=== PATIENT | female | born 1945 | race Caucasian/White ===

== ENCOUNTER 2022-07-15 18:00 | Inpatient (IN) | payer MEDICARE, SELFPAY ==
--- NOTE | ~2022-07-15 | CT_ITS ---
EXAMINATION: CT HEAD WITHOUT CONTRAST (STROKE PROTOCOL) CLINICAL INFORMATION: Stroke protocol. Left-sided weakness COMPARISON: None available. TECHNIQUE: Contiguous axial imaging was performed from the skull base to vertex without intravenous administration of contrast. This CT examination was performed using dose optimization techniques as appropriate, variously including the following: *Automated exposure control *Adjustment of mA and/or kV according to patient size (this includes techniques or standardized protocols for targeted exams where dose is matched to indication/reason for exam; i.e. extremities or head) *Use of iterative reconstruction technique DLP: 601 mGy-cm FINDINGS: There is no evidence of acute intracranial hemorrhage or territorial infarction. No abnormal mass-effect or midline shift is seen. Jesus to white matter differentiation is well preserved. No extra-axial fluid collections are identified. The ventricles are normal in size. There is no abnormal attenuation within the brain parenchyma. There is no osseous abnormality. The mastoid air cells and visualized portions of the paranasal sinuses are well-aerated. CT/CT head for stroke IMPRESSION: No acute intracranial pathology. This critical result was discussed with Dr. Ocampo. Recommend dose length. at 1820 hours on 07/15/2022. It was ascertained that the content and urgency of the report was understood at the time of direct communication.
--- NOTE | ~2022-07-15 | CT_ITS ---
EXAMINATION: CT ANGIOGRAM HEAD CT ANGIOGRAM NECK CLINICAL INFORMATION: Reason for Exam stroke COMPARISON: Same day CT head without contrast TECHNIQUE: Test bolus sequences followed by intravenous administration 70 mL of Omnipaque 350. Helical imaging was performed in the axial plane from the aortic arch to the skull vertex. Delayed postcontrast imaging of the head was also performed. The data was processed at the cardiac cath technologist's workstation for generation of MIP sequences. Angled MIPs and volume rendered reformatted images were also generated at an offline 3D workstation. Stenoses are assessed in accordance with NASCET criteria unless otherwise indicated. DLP: 1429 mGy-cm This CT examination was performed using dose optimization techniques as appropriate, variously including the following: *Automated exposure control. *Adjustment of mA and/or kV according to patient size (this includes techniques or standardized protocols for targeted exams where dose is matched to indication/reason for exam; i.e. extremities or head). *Use of iterative reconstruction technique. FINDINGS: CT Head: There is no evidence of acute intracranial hemorrhage or edematous territorial infarction. A few foci of hypoattenuation in the periventricular and deep white matter are consistent with mild microangiopathy. Jesus-white matter differentiation is preserved. Proportional prominence of the ventricles and sulcal spaces. No evidence for obstructive hydrocephalus. No abnormal mass effect or midline shift. No extra-axial fluid collections. No pathologic intra-axial enhancement or regional oligemia. No acute soft tissue or osseous abnormalities. The mastoid air cells and paranasal sinuses are clear. CT Neck: The thyroid gland and remaining cervical soft tissues are within normal limits. Moderate to advanced multilevel cervical spondylosis. Degenerative disc disease is worst at C5-C6. CT Upper Chest: Biapical pulmonary scarring. The visualized upper mediastinum is within normal limits. There is a subacute appearing fracture of the right anterolateral first rib Neck CTA: Aortic Arch: Normal contour and caliber. Classic 3 vessel branching pattern of the aortic arch. Great Vessel Origins: No significant stenosis of the branch origins. Evaluation of the proximal great great vessels at the thoracic inlet is somewhat limited due to motion. Right Common Carotid Artery: No focal stenosis or occlusion. Medialized proximal course along the tracheoesophageal groove. Cervical Right Internal Carotid Artery: Normal opacification without focal stenosis or occlusion. Proximal retropharyngeal course. Left Common Carotid Artery: No focal stenosis or occlusion. Medialized distal retropharyngeal course. Cervical Left Internal Carotid Artery: Normal opacification without focal stenosis or occlusion. Cervical Right Vertebral Artery: No focal stenosis or occlusion. Cervical Left Vertebral Artery: Dominant. No focal stenosis or occlusion. Brain CTA: Intracranial Internal Carotid Arteries: Calcific atherosclerotic disease of the intracranial internal carotid arteries without occlusion or flow-limiting stenosis. 3 mm inferiorly projecting aneurysm of the supraclinoid left internal carotid artery (series 6 image 272). Right Anterior Cerebral Artery: Normal A1 segment. Normal opacification of the distal KATARZYNA segments. Left Anterior Cerebral Artery: Normal A1 segment. Normal opacification of the distal KATARZYNA segments. Anterior Communicating Artery: Normal. Right Middle Cerebral Artery: Normal M1 segment of the MCA without focal stenosis or occlusion. Normal arborization of the distal segments. Left Middle Cerebral Artery: Normal M1 segment of the MCA without focal stenosis or occlusion. Normal arborization of the distal segments. Right Vertebral Artery: The proximal intradural vertebral artery is patent with patent origin of the right PICA and occlusion of the distal intradural right vertebral artery. Left Vertebral Artery: Normal V4 segment. Basilar Artery: Normal without focal stenosis or occlusion. Normal appearance of the proximal superior cerebellar arteries. Right Posterior Cerebral Artery: configuration. There is a high-grade stenosis of the distal P2 segment with grossly preserved contrast filling of the distal right CORPORATE TREASURY ANALYST complex Left Posterior Cerebral Artery: Normal P1 segment. Normal opacification of the distal CORPORATE TREASURY ANALYST segments. Normal opacification of the superior sagittal, straight, transverse, and sigmoid sinuses. CT/CT angio head neck stroke IMPRESSION: 1. 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 There is preserved contrast filling of the basilar artery and posterior circulation from the dominant left vertebral artery. 2. High-grade stenosis of the distal P2 segment of the right posterior cerebral artery with grossly preserved distal right CORPORATE TREASURY ANALYST complex opacification. 3. 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
[2022-07-15 18:09] LABS: Glucose, Whole Blood 135 mg/dL (60-115); Prothrombin Time Whole Bld POC 11.2 sec (11.1-13.5); ~PT, ~INR - Anti Coag Clinic 0.9 (0.9-1.1)
--- NOTE | 2022-07-15 18:09 | ECG_ITS ---
Test Reason : STROKE? Blood Pressure : / mmHG Vent. Rate : 095 BPM Atrial Rate : 095 BPM P-R Int : 162 ms QRS Dur : 076 ms QT Int : 342 ms P-R-T Axes : 066 054 053 degrees QTc Int : 429 ms Normal sinus rhythm Normal ECG No previous ECGs available Referred By: Emilia Ocampo Electronically Signed By:FRANKLIN SANTOS
--- NOTE | 2022-07-15 18:19 | ED.NEUROSD ---
HPI - Neuro Symptoms/Deficit General Chief Complaint: Stroke Stated Complaint: Stroke Time Seen by Provider: 07/15/22 18:09 History of Present Illness HPI Narrative: Patient is a 77-year-old female with a history of hypertension, high cholesterol. Patient baseline has a history of migraine and some visual loss is out of the left eye. Presented today with having sudden onset of difficulty finding the correct word. Difficulty with using left upper extremity. Patient came into the emergency department for further evaluation. Related Data Allergies Allergy/AdvReac Type Severity Reaction Status Date / Time No Known Allergies Allergy Verified 07/15/22 18:09 Review of Systems Review of Systems: Positive subjective weakness in the left upper extremity positive subjective difficulty finding words Yes all other systems are reviewed and are negative [facility] Past Medical History Attestation statement: The following information was validated with the patient. Physical Exam Vital Signs: Vital Signs: Last Vital Signs Temp 97.9 F 07/15/22 18:58 Pulse 97 07/15/22 18:58 Resp 12 07/15/22 18:58 BP 153/67 H 07/15/22 18:58 Pulse Ox 95 07/15/22 18:58 O2 Del Method Room Air 07/15/22 18:58 BMI result Body Mass Index 23.4 Appearance: Alert. Oriented X3. No acute distress. Eyes: Pupils equal, round and reactive to light. ENT: Pharynx normal. Neck: Normal inspection. Neck supple. No lymph nodes noted. No crepitus CVS: Normal heart rate and rhythm. Pulses normal. Normal S1 and S2 Respiratory: No respiratory distress. Breath sounds normal. No Wheezing. No rales Abdomen: Soft and nontender. No rigidity. No distention. good BS x4 Skin: Skin warm and dry. Normal skin color. Normal skin turgor. Extremities: No lower extremity edema. Neurovascular intact to all extremities. No Lacerations. No Rash. Grossly strength in the upper lower extremity intact. Moving all extremities well. There is no finger-nose deficit noted. Rapid alternating movement intact. Patient's speech was clear. Smile was symmetrical. Able to lift up bilateral lower extremity against gravity for at least 5 seconds. Neuro: Oriented X 3. No motor deficit. No sensory deficit. Moving all extermities. No slurred speech Medications Administered Discontinued Medications Generic Name Dose Route Start Last Admin Trade Name Freq PRN Reason Stop Dose Admin Diphenhydramine HCl 25 mg 07/15/22 18:49 07/15/22 19:08 Diphenhydramine Hcl 50 Mg/Ml Vial IVPUSH 07/15/22 18:50 25 mg ONCE ONE Administration Iohexol 100 ml 07/15/22 18:23 07/15/22 18:24 Iohexol 350 Mg/Ml 100 Ml Infus..Btl IV 07/15/22 18:24 70 ml ONCE ONE Administration Metoclopramide HCl 10 mg 07/15/22 18:49 07/15/22 19:07 Metoclopramide Hcl 10 Mg/2 Ml Vial IVPUSH 07/15/22 18:50 10 mg ONCE ONE Administration Medical Decision Making Medical Decision Making [facility] Narrative: Patient's sugar was over 100 there is no evidence for hypoglycemia. Patient presented with sudden onset of weakness. It seems to have resolved on arrival in emergency department. Patient has no peripheral visual field defect on exam. Has good equal strength in the upper extremity. Has good equal strength in the bilateral lower extremity. She thinks that she is having difficulty finding words but has improved. Patient's CT scan of the head was grossly negative. Her NIH stroke scale was 0. Do not feel patient's deficit warrants tPA at this time. Will monitor closely. CTA of the head and neck being done to rule out a larger occlusion in the proximal vessel. Patient is in stable condition will most likely require admission for TIA. Patient's CT head was grossly negative for any acute evidence of bleeding. CTA head and neck showed a posterior circulation issue. The finding was discussed with Neurology. At this time felt patient should be admitted without tPA given symptoms mostly resolved. NIH stroke scale was low. Symptoms may be consistent with migraine. Case will be discussed with the hospitalist team. Will admit for further evaluation. Differential Diagnosis Hypoglycemia, TIA, CVA, mass Admission/Observation Consideration of admission/observation: Escalation of care including admission/observation considered Consult Healthcare Provider Management of the patient was discussed with: Hospitalist Lab Data [facility] Lab Attestation statement: I reviewed the patient's lab results. 07/15/22 18:50 07/15/22 18:50 Labs: Lab Results 07/15/22 07/15/22 07/15/22 Range/Units 18:05 18:05 18:50 WBC 7.0 (4.8-10.8) X10*3/uL RBC 5.11 (4.20-5.50) X10*6/uL Hgb 15.6 (12.0-16.0) g/dl Hct 45.4 (37.0-47.0) % MCV 88.8 (80.0-98.0) fL MCH 30.5 (27.0-33.0) pg MCHC 34.4 (31.0-35.0) g/dl RDW 13.5 (11.0-16.0) % Plt Count 250 (160-400) X10*3/uL MPV 9.1 L (9.4-12.3) fL Immature Gran % (Auto) 0.3 (0.0-0.4) % Neut % (Auto) 77.6 H (45-73) % Lymph % (Auto) 14.9 L (20-40) % [place] % (Auto) 6.4 (2-11) % Eos % (Auto) 0.4 (0-4) % Baso % (Auto) 0.4 (0-2) % Lymph # (Auto) 1.0 L (1.2-4.9) X10*3/uL [place] # (Auto) 0.5 (0.1-1.2) X10*3/uL Eos # (Auto) 0.0 (0.0-0.4) X10*3/uL Baso # (Auto) 0.0 (0.0-0.2) X10*3/uL Abs Immat Gran (auto) 0.02 (0.00-0.03) X10*3/uL Absolute Neuts (auto) 5.4 (2.0-8.3) x10*3/uL Absolute Nucleated RBC 0.000 (0.0-0.012) X10*3/uL Nucleated RBC % (auto) 0.0 (0.0-0.2) /100WBC PT (10.0-13.1) SEC Whole Blood PT 11.2 (11.1-13.5) sec INR (0.9-1.1) Whole Blood INR 0.9 (0.9-1.1) POC Glucose 135 H (60-115) mg/dL 07/15/22 Range/Units 18:50 WBC (4.8-10.8) X10*3/uL RBC (4.20-5.50) X10*6/uL Hgb (12.0-16.0) g/dl Hct (37.0-47.0) % MCV (80.0-98.0) fL MCH (27.0-33.0) pg MCHC (31.0-35.0) g/dl RDW (11.0-16.0) % Plt Count (160-400) X10*3/uL MPV (9.4-12.3) fL Immature Gran % (Auto) (0.0-0.4) % Neut % (Auto) (45-73) % Lymph % (Auto) (20-40) % [place] % (Auto) (2-11) % Eos % (Auto) (0-4) % Baso % (Auto) (0-2) % Lymph # (Auto) (1.2-4.9) X10*3/uL [place] # (Auto) (0.1-1.2) X10*3/uL Eos # (Auto) (0.0-0.4) X10*3/uL Baso # (Auto) (0.0-0.2) X10*3/uL Abs Immat Gran (auto) (0.00-0.03) X10*3/uL Absolute Neuts (auto) (2.0-8.3) x10*3/uL Absolute Nucleated RBC (0.0-0.012) X10*3/uL Nucleated RBC % (auto) (0.0-0.2) /100WBC PT 10.0 (10.0-13.1) SEC Whole Blood PT (11.1-13.5) sec INR 0.9 (0.9-1.1) Whole Blood INR (0.9-1.1) POC Glucose (60-115) mg/dL Independent Interpretation I performed an independent interpretation of an: EKG and CT Scan Interpretation: CT head negative for any acute evidence of bleeding. My interpretation patient's CT showed a sinus pattern heart rate was 100 [place] QRS QTC within normal limits is no acute ST segment. Radiology Impression Discussion of test interpretation with radiology: I have reviewed the radiologist's reading. Radiologist Impression: CTA showed decreased blood flow in the posterior circulation NIH Stroke Scale Internal: Initial- Upon Arrival Time: 18:20 Level of Consciousness: Alert Level of Consciousness Questions: Answers both questions correctly Level of Consciousness Commands: Performs both tasks correctly Best Gaze: Normal Visual: No visual loss Facial Palsy: Normal Motor Arm (Right): No drift Motor Arm (Left): No drift Motor Leg (Right): No drift Motor Leg (Left): No drift Limb Ataxia: Absent Sensory: Normal Best Language: No aphasia Dysarthia: Normal Extinction and Inattention: No abnormality Score: 0 Critical Care Time Critical Care Time Critical Care Time: Yes Total Critical Care Time: 40 Attestation: I have personally provided 40 minutes of critical care time exclusive of time spent on separately billable procedures. Time includes review of lab data, radiology results, discussion with consultants, and monitoring for potential decompensation. Interventions were performed as documented above Discharge Plan Discharge Clinical Impression: Cerebrovascular accident, Transient cerebral ischemia Patient Disposition: Admitted As Inpatient
[2022-07-15] MEDS: iohexoL 350 MG/ML 100 ML INFUS..BTL IV (18:24)
[2022-07-15 18:35] VITALS: BP 153/67; BP 178/54; PULSE 107; PULSE 99; RESP 20; O2SAT 95; O2SAT 99; BMI 23.4
[2022-07-15 18:58] VITALS: BP 153/67; PULSE 97; RESP 12; TEMP 36.6; O2SAT 95
[2022-07-15 19:06] LABS: MANUAL DIFF FLAG NO
[2022-07-15] MEDS: Metoclopramide HCl 10 MG/2 ML VIAL IVPUSH (19:07)
[2022-07-15 19:08] LABS: Basophils Percent Auto 0.4 % (0-2); Eosinophils Percent Auto 0.4 % (0-4); Hematocrit 45.4 % (37.0-47.0); Hemoglobin 15.6 g/dl (12.0-16.0); Imm Gran Abs Auto 0.02 X10*3/uL (0.00-0.03); Imm Gran Pct Auto 0.3 % (0.0-0.4); Lymphocytes Percent Auto 14.9 % (20-40); Mean Corpuscular HGB Conc 34.4 g/dl (31.0-35.0); Mean Corpuscular Hemoglobin 30.5 pg (27.0-33.0); Mean Corpuscular Volume 88.8 fL (80.0-98.0); Mean Platelet Volume 9.1 fL (9.4-12.3); Monocytes Absolute Auto 0.5 X10*3/uL (0.1-1.2); Monocytes Percent Auto 6.4 % (2-11); Neutrophils Absolute Auto 5.4 x10*3/uL (2.0-8.3); Neutrophils Percent Auto 77.6 % (45-73); Platelet Count 250 X10*3/uL (160-400); Red Blood Count 5.11 X10*6/uL (4.20-5.50); Red Cell Distribution Width 13.5 % (11.0-16.0)
[2022-07-15] MEDS: diphenhydrAMINE HCL 50 MG/ML VIAL 25 MG IVPUSH (19:08)
[2022-07-15 19:14] LABS: INTERNATIONAL NORM RATIO 0.9 (0.9-1.1)
[2022-07-15 19:21] LABS: Stroke Lab Use COMPLETE
[2022-07-15 19:21] LABS: COVID-19 Test Negative (Negative); IDNOW Serial# BCCEAD1C
--- NOTE | 2022-07-15 19:23 | PM.IMHP ---
History of Present Illness Date of Service: 07/15/22 Chief Complaint: Left arm weakness This is a 77-year-old female with pertinent history of essential hypertension, generalized anxiety disorder, gastroesophageal reflux disease, migraine who presents to the emergency department for evaluation of left upper extremity and left lower extremity weakness. Patient states that around 17:00 she had sudden onset of left upper extremity tingling and weakness. Patient also had left lower extremity weakness and some difficulty ambulating. No history of stroke in the past. Does have a history of migraine with baseline visual loss out of left eye. States she may have had difficulty with word-finding too. Patient denies fever, chills, chest discomfort, palpitations, shortness of breath, abdominal pain, changes in urinary or bowel habits. No loss of consciousness, jerking movement of extremities, facial droop In the emergency department, neurology was consulted who requested admission. Review of Systems Constitutional: Constitutional: Reports no additional constitutional complaints and Reports weakness Cardiovascular: Cardiovascular: Reports no additional cardiovascular complaints Respiratory: Respiratory: Reports no additional respiratory complaints Gastrointestinal: Gastrointestinal: Reports no additional gastrointestinal complaints Genitourinary: Genitourinary: Reports no additional female genitourinary complaints Musculoskeletal: Musculoskeletal: Reports numbness Neurologic: Reports Abnormal speech present, Reports focal weakness, Reports numbness and Reports weakness Psychiatric: Psychiatric: Reports no additional psychiatric complaints [facility] Medical History Anxiety GERD (gastroesophageal reflux disease) Hypertension Migraine Pertinent family history: No family h/o of CAD Surgical History H/O shoulder replacement Social History Advance Directives: No Advance Directives Information Provided: No Meds Allergies Allergy/AdvReac Type Severity Reaction Status Date / Time No Known Allergies Allergy Verified 07/15/22 18:09 Active Medications: Current Medications Pharmacy Consult (Consult Rx Perform Med Rec) 1 each MISCELLANE ONCE PRN PRN Reason: Consult order Physical Exam Vital Signs and Narrative: Vital Signs: Last Vital Signs Temp 97.9 F 07/15/22 18:58 Pulse 97 07/15/22 18:58 Resp 12 07/15/22 18:58 BP 153/67 H 07/15/22 18:58 Pulse Ox 95 07/15/22 18:58 O2 Del Method Room Air 07/15/22 18:58 BMI result Body Mass Index 23.4 Middle-aged female lying in bed in no distress Neck supple, no JVD Regular rate and rhythm, S1-S2 heard Regular breath sounds bilaterally, no wheezing or crackles appreciated Abdomen soft nontender, no guarding, no rigidity Patient is awake, alert and oriented to self, place, time and person ; strength 4/5 in bilateral lower extremities, 5/5 in bilateral upper extremities, no facial droop, no nystagmus, tongue and uvula midline, Psych: Normal mood No pedal edema Neuro: Speech: Abnormal speech present Results Labs 07/15/22 18:50 07/15/22 18:50 Labs: Laboratory Results - last 24 hr 07/15/22 07/15/22 07/15/22 18:05 18:05 18:50 MCV 88.8 MCH 30.5 MCHC 34.4 RDW 13.5 Plt Count 250 MPV 9.1 L Immature Gran % (Auto) 0.3 Neut % (Auto) 77.6 H Lymph % (Auto) 14.9 L [place] % (Auto) 6.4 Eos % (Auto) 0.4 Baso % (Auto) 0.4 Lymph # (Auto) 1.0 L [place] # (Auto) 0.5 Eos # (Auto) 0.0 Baso # (Auto) 0.0 Abs Immat Gran (auto) 0.02 Absolute Neuts (auto) 5.4 Absolute Nucleated RBC 0.000 Nucleated RBC % (auto) 0.0 PT Whole Blood PT 11.2 INR Whole Blood INR 0.9 POC Glucose 135 H COVID-19 ([facility]ONNE) COVID-19 Clin Com 07/15/22 07/15/22 18:50 18:57 MCV MCH MCHC RDW Plt Count MPV Immature Gran % (Auto) Neut % (Auto) Lymph % (Auto) [place] % (Auto) Eos % (Auto) Baso % (Auto) Lymph # (Auto) [place] # (Auto) Eos # (Auto) Baso # (Auto) Abs Immat Gran (auto) Absolute Neuts (auto) Absolute Nucleated RBC Nucleated RBC % (auto) PT 10.0 Whole Blood PT INR 0.9 Whole Blood INR POC Glucose COVID-19 (YVONNE) Negative COVID-19 Clin Com See Note Imaging Radiologist's Impressions: Impressions Head CT 07/15/22 18:15 IMPRESSION: No acute intracranial pathology. This critical result was discussed with Dr. Ocampo. Recommend dose length. at 1820 hours on 07/15/2022. It was ascertained that the content and urgency of the report was understood at the time of direct communication. Head/Neck CTA 07/15/22 18:24 IMPRESSION: 1. 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 There is preserved contrast filling of the basilar artery and posterior circulation from the dominant left vertebral artery. 2. 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 3. 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 #. Transient left-sided weakness: Concerning for TIA. Will admit patient with cardiac exercise physiologist. Patient states she is unable to undergo MRI as she has metal in her right shoulder. Obtaining echo, A1c and lipid panel to complete workup. Consulting Neurology in a.m., appreciate assistance. Received aspirin in the ER #. Essential hypertension: Continue home p.o. antihypertensives #. Generalized anxiety disorder: On lorazepam at night #. Gastroesophageal reflux disease: On Protonix Med rec pending DVT prophylaxis: Lovenox 40 mg daily Full code Cardiac diet Admit as inpatient possible TIA and stroke workup. Neurology consult pending Time Spent With Patient Time: Total time managing care of this patient today ____ minutes. Quality Stroke Does the patient have a stroke diagnosis?: No VTE Prior VTE?: No VTE Risk Level:: Medical - moderate - high VTE Device Contraindication: Treatment Not Indicated VTE Drug Contraindication: N/A - Med Ordered
[2022-07-15 19:29] LABS: Anion Gap 17 (12-20); Blood Urea Nitrogen 17 mg/dL (9-16); Calcium 9.8 mg/dL (8.4-10.2); Carbon Dioxide 21 mmol/L (22-29); Chloride 100 mmol/L (96-108); Creatinine Clr Calc Pharmacy 43.9; Estimated Glomerular Filt Rate > 60; Glucose Random 106 mg/dL (60-115); Magnesium 1.9 mg/dL (1.6-2.6); Phosphorus 3.5 mg/dL (2.7-4.5); Potassium 4.5 mmol/L (3.3-5.1); Sodium 133 mmol/L (135-145)
[2022-07-15 19:36] LABS: Troponin-I High Sensitivity 7.4 ng/L (<3.5-17.0)
--- NOTE | 2022-07-15 19:55 | PHA.MEDREC ---
Pharmacy Consult ? Medication Reconciliation Pharmacy has completed the medication reconciliation. Patient knew all medications
[2022-07-15 20:12] VITALS: BP 129/66; PULSE 87; RESP 18; TEMP 36.8; O2SAT 95
[2022-07-15] MEDS: Aspirin 81 MG TAB.CHEW PO (20:15)
[2022-07-15] MEDS: LORazepam 1 MG TABLET PO (20:15)
[2022-07-15] MEDS: Enoxaparin Sodium 40 MG/0.4 ML SYRINGE SUBCUT (20:16)
[2022-07-15 20:22] LABS: Appearance Urine Clear; Color Urine Yellow; Glucose Urine UA Negative (Negative); Leukocyte Esterase Urine Trace (Negative); Nitrite Urine Negative (Negative); UMIC TRIGGER UACC YES; Urine Blood Negative (Negative); Urine Ketones Negative (Negative); Urine Protein Negative (Neg-Trace)
[2022-07-15 20:25] LABS: Bacteria Urine None Seen (None Seen); Hyaline Casts Urine 0-2 /LPF (0-2); RBC Urine 0-2 /HPF (0-2); Squamous Epithelial Cell Urine 0-2 /HPF (0-2); WBC Urine 0-5 /HPF (0-5)
[2022-07-15 20:26] LABS: Cholesterol 252 mg/dL; HDL Cholesterol 97 mg/dL; LDL Cholesterol Calculated 140 mg/dl; Triglycerides 75 mg/dL
--- NOTE | 2022-07-15 21:45 | PC.NURSE ---
Pt A&Ox4, denies any pain, denies any blurry vision. Symmetric smile, equal bilateral hand route inspector, no hand drift noted, equal pedal extension. Ambulated to BR with stand by assist, steady gait. Passed nursing bedside swallow eval. States feeling a lot better . Pt declined toradol r/t leg swelling in the past. RN to RN report given. Pt will be transported to bed 482. Pt aware of plan.
[2022-07-15 23:32] VITALS: BP 141/66; PULSE 80; RESP 15; TEMP 36.9; O2SAT 97
[2022-07-16 03:18] LABS: Estimated Average Glucose 100 mg/dL; Hemoglobin A1c % 5.1 %
[2022-07-16 06:54] LABS: MANUAL DIFF FLAG NO
[2022-07-16 07:00] LABS: Basophils Percent Auto 0.6 % (0-2); Eosinophils Absolute Auto 0.1 X10*3/uL (0.0-0.4); Eosinophils Percent Auto 1.1 % (0-4); Hematocrit 41.4 % (37.0-47.0); Hemoglobin 14.1 g/dl (12.0-16.0); Imm Gran Abs Auto 0.01 X10*3/uL (0.00-0.03); Imm Gran Pct Auto 0.2 % (0.0-0.4); Lymphocytes Absolute Auto 1.6 X10*3/uL (1.2-4.9); Lymphocytes Percent Auto 29.6 % (20-40); Mean Corpuscular HGB Conc 34.1 g/dl (31.0-35.0); Mean Corpuscular Hemoglobin 30.5 pg (27.0-33.0); Mean Corpuscular Volume 89.4 fL (80.0-98.0); Mean Platelet Volume 9.4 fL (9.4-12.3); Monocytes Absolute Auto 0.6 X10*3/uL (0.1-1.2); Monocytes Percent Auto 11.1 % (2-11); Neutrophils Percent Auto 57.4 % (45-73); Platelet Count 223 X10*3/uL (160-400); Red Blood Count 4.63 X10*6/uL (4.20-5.50); Red Cell Distribution Width 13.5 % (11.0-16.0); White Blood Count 5.3 X10*3/uL (4.8-10.8)
--- NOTE | 2022-07-16 07:00 | CA_ITS ---
Transthoracic Echocardiogram Patient (Last, First, Middle): Becky Bonner, Gender: Female Date of : 1945 Age: 77 Procedure Date: 07/16/2022 Procedure Type: [place]ansthoracic [place] [facility] [place]: 152.4 cm Weight: 54.43 kg BSA: 1.50 m2 Heart Rate: bpm BP: 141 / 66 mmHg Reporter: YE Referring MD: Brodie Fitzgerald MD Symptoms: CVA Study Quality: Adequate ECG Rhythm: Sinus Conclusions: - The left ventricular systolic function is hyperdynamic. The visually estimated ejection fraction is >70%. - There is mild calcification of the aortic valve. - No obvious valvular pathology seen on this study. Findings Left Ventricle Normal left ventricular cavity size. There is normal left ventricular wall thickness. The left ventricular systolic function is hyperdynamic. The visually estimated ejection fraction is >70%. There is no evidence of regional wall motion abnormalities. Diastolic function is normal for age. Right Ventricle Normal right ventricular cavity size and systolic function. Atria Both atria are normal in size. Aortic Valve There is a normal trileaflet aortic valve. There is mild calcification of the aortic valve. There is no aortic valve stenosis. There is no aortic valve regurgitation. Mitral Valve The mitral valve appears normal. There is trace mitral valve regurgitation. There is no mitral valve stenosis. Pulmonic Valve The pulmonic valve is likely normal. Tricuspid Valve There is trace tricuspid valve regurgitation. There is no evidence of pulmonary hypertension. Great Vessels The asc aorta is normal in size. Venous The inferior vena cava is normal in size and collapses greater than 50% with inspiration. Pericardium/Pleural There is no evidence of pericardial effusion. Prior Study Comparison No prior study available for comparison. Recommendations, Care & Conclusions No obvious valvular pathology seen on this study. Measurements 2D Linear Measurements IVSd: 0.95 0.6-0.9/0.6-1.0 cm LVIDd: 3.75 3.9-5.3/4.2-5.9 cm LVIDd Index: 2.50 2.4-3.2/2.2-3.1 cm/m2 LVIDs: 2.19 2.0-3.6 cm LVPWd: 0.72 0.7-1.1 cm LA Diam: 2.30 2.7-3.8/3.0-4.0 cm LAIDs Index: 1.53 1.5-2.3 cm/m2 LV Mass: 110.84 67-162/88-224 g LV Mass Index: 73.89 43-95/49-115 g/m2 LVOT Diam: 1.80 3.0+(-)1.3 cm 2D Systolic Function EF 4C: 74.10 >55% EF 2C: 74.80 >55% EF BiP: 74.40 >55% Mitral Valve MV Pk E: 0.80 MV PK A: 0.98 MV Decel Time: 311.00 E/A: 0.80 E'Lateral: 9.14 E'Medial: 5.44 E/E' Med: 14.70 E/E' Lat: 8.70 PHT: 91.00 MVA PHT: 2.42 Decel Braxton: 2.57 Aortic Valve AoV Pk Christopher: 1.42 AoV Mn Christopher: 1.09 AoV VTI: 0.26 AoV Pk Grad: 8.00 Aov Mn Grad: 5.00 JAI Cont.VTI: 2.29 LVOT LVOT Pk Christopher: 1.20 LVOT Mn Christopher: 0.85 LVOT VTI: 0.24 LVOT Pk Grad: 6.00 LVOT Mn Grad: 3.00 LVOT Diam: 1.80 LVOT Area: 2.54 Diastolic Function MV Pk E: 0.80 MV Pk A: 0.98 E/A: 0.80 E'Medial: 5.44 E/E' Med: 14.70 E' Laterial: 9.14 E/E' Lat: 8.70 Right Ventricle TAPSE (mm): 23.60 TVS' Christopher: 17.10 Tricuspid Valve TR Pk Christopher: 1.86 TR Pk Grad: 14.00 RA Press: 3.00 RVSP: 17.00 Great Vessels Aorta Sinus of Valsalva: 2.80 2.0-3.5 cm Ao Asc: 2.70 2.1-3.4 cm Pulmonary Valve PV Pk Christopher: 1.24 Peak PV Grad: 6.00 Updated in Other Vendor System with Status of Final Mervin Celis MD electronically signed on 07/16/2022 4:15:55 PM with status of Final
[2022-07-16 07:22] LABS: Anion Gap 14 (12-20); Blood Urea Nitrogen 13 mg/dL (9-16); Calcium 9.2 mg/dL (8.4-10.2); Carbon Dioxide 24 mmol/L (22-29); Chloride 104 mmol/L (96-108); Creatinine Clr Calc Pharmacy 50.5; Estimated Glomerular Filt Rate > 60; Glucose Random 82 mg/dL (60-115); Potassium 4.2 mmol/L (3.3-5.1); Sodium 138 mmol/L (135-145)
[2022-07-16 07:43] VITALS: BP 132/70; PULSE 75; RESP 20; TEMP 37.2; O2SAT 96
[2022-07-16] MEDS: 0.9 % Sodium Chloride Flush 3 ML SYRINGE IVFLUSH (07:57)
[2022-07-16 11:02] VITALS: BP 148/74; PULSE 78; RESP 20; TEMP 36.7; O2SAT 96
--- NOTE | 2022-07-16 11:16 | MHC.SL.SWA ---
Speech Pathologist Impression: WFL Risk of Aspiration Due to: TIA v CVA Dysphasia Diet Status: Liquid Consistency and Strategies for Safe Swallow: Liquid Intake Recommendation: Thin Liquid Intake Strategies: Unrestricted Solid Food Consistency: Dietary Recommendations: Regular Oral Medication Intake: Please contact the pharmacy regarding appropriate crushable or liquid drug formulations that are available whenever modified delivery is recommended. Supervision While Eating and Drinking for Safe Swallow: None Needed Swallowing Recommended Treatments: Recommendation for Speech: NA:Typical Evaluation Comment: No ACCOUNT DEVELOPMENT REPRESENTATIVE services indicated at this time. Frequency/Duration: Date Range for Service Req: Timeline to reassess: Bowling Pin Setters Installer Clinican/Clinical Fellow: No Supervisory Statement: I have reviewed and agree with the student/clinical fellow's documentation: N/A Speech Language Pathologist: Stu Vazquez M.A., CCC-ACCOUNT DEVELOPMENT REPRESENTATIVE
--- NOTE | 2022-07-16 12:04 | MHC.CM.PN ---
Addendum entered by Sandrita Oropeza 07/16/22 15:47: DP: PT HAS BEEN MEDICALLY CLEARED FOR DC HOME, NO SERVICES. DAUGHTER WILL TRANSPORT. Original Note: [facility] DELIVERED PT IS HERE VISITING DAUGHTER FROM [place]. PLAN TO RETURN TO [facility] 07/20 IF MEDICALLY CLEARED VIA PLANE. WILL STAY WITH DAUGHTER UNTIL THEN. INDEPENDENT AT BASELINE, WALKS A MILE DAILY. +HCP (COPY AT HOME, DECLINES TO FILL A NEW ONE OUT) + COVID VAX X5 PCP IN [place]. DP: TO RETURN HOME ON 07/[address], WILL STAY WITH DAUGHTER UNTIL THEN. CM WILL CONTINUE TO FOLLOW.
--- NOTE | 2022-07-16 12:57 | PM.CNGS ---
History of Present Illness Consult details Consult date: 07/16/22 Narrative: Very pleasant 77-year-old female presents for evaluation regarding TIA. She has been admitted to the hospital and being worked up by the medical service. Of note she has undergone CT angiogram of head neck. There is concern of a vertebral artery occlusion. Appears to be doing relatively well otherwise. She reports D incident where she had lost left arm and leg weakness. There was a speech disturbance. In addition to blurry with vision. It was a 1 time episode and no further events had occurred. She now presents to us for vascular evaluation. Review of Systems Review of Systems: Yes all other systems are reviewed and are negative Constitutional: Constitutional: Reports no additional constitutional complaints ENT: Reports Normal hearing present Cardiovascular: Cardiovascular: Denies chest pain, Denies chest pain at rest, Denies chest pain with activity and Denies pedal edema Respiratory: Respiratory: Denies cough Gastrointestinal: Gastrointestinal: Denies abdominal pain Musculoskeletal: Musculoskeletal: Denies abnormal gait, Denies muscle cramps and Denies radiating pain into limb Integumentary/Breasts: Skin/Breast: Denies skin ulcer and Denies wounds Neurologic: Reports Normal hearing present and Denies abnormal gait Psychiatric: Psychiatric: Reports no additional psychiatric complaints PMFSH Past Medical History Medical History Anxiety GERD (gastroesophageal reflux disease) Hypertension Migraine Surgical History Surgical History H/O shoulder replacement Social History Social History Household Members: None Housing: Apartment Do you presently have visiting nurse or other home services: No (pt lives in [place]) Alcohol intake: current Alcohol intake frequency: 0-2 drinks per day Alcohol type: wine Patient Tobacco Use Status: Never used Tobacco service: No Current occupational status: retired Meds Allergies Allergy/AdvReac Type Severity Reaction Status Date / Time No Known Allergies Allergy Verified 07/15/22 18:09 Active Medications: Current Medications Acetaminophen (Acetaminophen 325 Mg Tablet) 650 mg PO Q6H PRN PRN Reason: Pain, Mild (Pain Scale 1-3) Enoxaparin Sodium (Enoxaparin Sodium 40 Mg/0.4 Ml Syringe) 40 mg SUBCUT Q24H [facility] Last Admin: 07/15/22 20:16 Dose: 40 mg Melatonin (Melatonin 3 Mg Tablet) 6 mg PO BEDTIME PRN PRN Reason: Insomnia Omeprazole (Omeprazole 40 Mg Capsule.Dr) 40 mg PO DAILY@0630 [facility] Ondansetron HCl (Ondansetron Hcl 4 Mg/2 Ml Vial) 4 mg IVPUSH Q8H PRN PRN Reason: Nausea and Vomiting Pharmacy Consult (Consult Rx Perform Med Rec) 1 each MISCELLANE ONCE PRN PRN Reason: Consult order Sodium Chloride (0.9 % Sodium Chloride Flush 3 Ml Syringe) 3 ml IVFLUSH QSHIFT [facility] Last Admin: 07/16/22 07:57 Dose: 3 ml Home Medications Medication Instructions Recorded Confirmed Last Taken Type amlodipine 10 mg tablet 10 mg PO DAILY 07/15/22 07/15/22 Unknown History gabapentin 100 mg capsule 100 mg PO BID PRN Pain 07/15/22 07/15/22 Unknown History lisinopril 20 mg tablet 40 mg PO DAILY 07/15/22 07/15/22 Unknown History lorazepam 1 mg tablet 1 mg PO BEDTIME PRN Insomnia 07/15/22 07/15/22 Unknown History pantoprazole 40 mg tablet,delayed 40 mg PO DAILY 07/15/22 07/15/22 Unknown History release Physical Exam Vital Signs: Vital Signs: Last Vital Signs Temp 98.0 F 07/16/22 11:02 Pulse 78 07/16/22 11:02 Resp 20 07/16/22 11:02 BP 148/74 H 07/16/22 11:02 Pulse Ox 96 07/16/22 11:02 O2 Del Method Room Air 07/16/22 11:02 BMI result Body Mass Index 23.4 Const: General: cooperative, healthy appearing and comfortable Orientation/consciousness: oriented to person, oriented to place and oriented to time HEENT: Head: Yes normal to inspection Neck: Neck: Yes normal visual inspection Carotids: no bruits Chest: Chest palpation & inspection: normal inspection of the chest Resp: Effort & Inspection: normal respiratory effort and able to speak in complete sentences Auscultation: clear to auscultation bilaterally, no crackles, no rales, no rhonchi and no wheezes Cardio: Rate: regular rate Rhythm: regular rhythm Heart sounds: S1 normal heart sound present and S2 normal heart sound present Bruits: no carotid bruits Peripheral pulses: Peripheral pulses 2+ throughout GI: Inspection: Yes normal to inspection Skin: Wounds: no wounds Hair: normal Neuro: General: oriented to person, oriented to place and oriented to time Cranial nerves: Yes CN's II-XII intact bilaterally and Yes Normal hearing present Cognition (Neuro): normal cognition Motor exam (neuro): 5/5 motor strength present throughout Extrem: Other: venous exam: No significant superficial varicosities or spider telangiectasias, minimal edema General: No clubbing, No cyanosis and No edema Psych: Appearance: grossly normal Mental Status: mental status grossly normal Speech and movement: Normal speech and movement present Results Labs 07/16/22 06:18 07/16/22 06:18 Labs: Abnormal lab results 07/15/22 07/15/22 07/15/22 Range/Units 18:05 18:50 18:50 MPV 9.1 L (9.4-12.3) fL Neut % (Auto) 77.6 H (45-73) % Lymph % (Auto) 14.9 L (20-40) % [place] % (Auto) (2-11) % Lymph # (Auto) 1.0 L (1.2-4.9) X10*3/uL Sodium 133 L (135-145) mmol/L Carbon Dioxide 21 L (22-29) mmol/L BUN 17 H (9-16) mg/dL POC Glucose 135 H (60-115) mg/dL Ur Leukocyte Esterase (Negative) 07/15/22 07/16/22 Range/Units 20:13 06:18 MPV (9.4-12.3) fL Neut % (Auto) (45-73) % Lymph % (Auto) (20-40) % [place] % (Auto) 11.1 H (2-11) % Lymph # (Auto) (1.2-4.9) X10*3/uL Sodium (135-145) mmol/L Carbon Dioxide (22-29) mmol/L BUN (9-16) mg/dL POC Glucose (60-115) mg/dL Ur Leukocyte Esterase Trace H (Negative) Short CBC 07/15/22 07/16/22 Range/Units 18:50 06:18 WBC 7.0 5.3 (4.8-10.8) X10*3/uL Hgb 15.6 14.1 (12.0-16.0) g/dl Hct 45.4 41.4 (37.0-47.0) % Plt Count 250 223 (160-400) X10*3/uL BMP 07/15/22 07/16/22 18:50 06:18 Sodium 133 L 138 Potassium 4.5 4.2 Chloride 100 104 Carbon Dioxide 21 L 24 BUN 17 H 13 Creatinine 0.77 0.67 Calcium 9.8 9.2 D Cardiac Enzymes 07/15/22 Range/Units 18:50 Total Creatine Kinase 118 (26-140) U/L Urine 07/15/22 Range/Units 20:13 Urine Color Yellow Urine Appearance Clear Urine pH 6.0 (5.0-9.0) Ur Specific [place] 1.020 (1.005-1.025) Urine Protein Negative (Neg-Trace) mg/dL Urine Glucose (UA) Negative (Negative) mg/dL All other labs normal. Imaging Additional studies: CT angiogram of head and neck was reviewed. 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 Assessment and Plan (1) Transient cerebral ischemia: Status: Acute Plan In short it appears that there is question of a TIA. The carotid arteries are clean and the vertebral artery does not appear to be the source of this. Would recommend neurologic workup. This was discussed in detail with the patient. She can follow up with us on an as-needed basis. Thank you for allowing us to participate in her care. If there are any questions or concerns please do not hesitate to contact us. Time Spent With Patient Time: Total time managing care of this patient today ____ minutes. Procedures Date of Service Date of Service: 07/16/22
--- NOTE | 2022-07-16 13:53 | PM.NEUROCN ---
History of Present Illness Data of Consult Service Date: 07/16/22 Primary Care Provider: Unknown Physician HPI Reason for consult: TIA with left sided weakness and numbness This is a 77-year-old female with h/o hypertension, generalized anxiety disorder, GERD, migraine who presented to the emergency department for evaluation of left upper extremity tingling and heaviness preceded by left lower extremity slight weakness and feeling insecure walking, starting around 17:00 She then developed her typical visual migraine with zigzag vision phenomenon that lasted 20 minutes. All Sx resolved in 60 minutes. No history of stroke in the past.? 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 States she may have had difficulty with word-finding too but people around her did not think so. No loss of consciousness,or facial droop Review of Systems Review of Systems: Yes all other systems are reviewed and are negative Constitutional: Constitutional: Reports no additional constitutional complaints and Reports weakness ENT: Reports Normal hearing present Cardiovascular: Cardiovascular: Reports no additional cardiovascular complaints, Denies chest pain, Denies chest pain at rest, Denies chest pain with activity and Denies pedal edema Respiratory: Respiratory: Reports no additional respiratory complaints and Denies cough Gastrointestinal: Gastrointestinal: Reports no additional gastrointestinal complaints and Denies abdominal pain Musculoskeletal: Musculoskeletal: Denies abnormal gait, Denies muscle cramps, Reports numbness and Denies radiating pain into limb Integumentary/Breasts: Skin/Breast: Denies skin ulcer and Denies wounds Neurologic: Reports Normal hearing present, Reports Abnormal speech present, Denies abnormal gait, Reports focal weakness, Reports numbness and Reports weakness Psychiatric: Psychiatric: Reports no additional psychiatric complaints PMFSH Past Medical History Medical History Anxiety GERD (gastroesophageal reflux disease) Hypertension Migraine Family History Pertinent family history: No family h/o of CAD Surgical History Surgical History H/O shoulder replacement Social History Social History Household Members: None Housing: Apartment Do you presently have visiting nurse or other home services: No (pt lives in [place]) Alcohol intake: current Alcohol intake frequency: 0-2 drinks per day Alcohol type: wine Patient Tobacco Use Status: Never used Tobacco service: No Current occupational status: retired [employer] Allergies Allergy/AdvReac Type Severity Reaction Status Date / Time No Known Allergies Allergy Verified 07/15/22 18:09 Active Medications: Current Medications Acetaminophen (Acetaminophen 325 Mg Tablet) 650 mg PO Q6H PRN PRN Reason: Pain, Mild (Pain Scale 1-3) Aspirin (Aspirin Enteric Coated 81 Mg Tablet.) 81 mg PO DAILY [facility] Enoxaparin Sodium (Enoxaparin Sodium 40 Mg/0.4 Ml Syringe) 40 mg SUBCUT Q24H [facility] Last Admin: 07/15/22 20:16 Dose: 40 mg Melatonin (Melatonin 3 Mg Tablet) 6 mg PO BEDTIME PRN PRN Reason: Insomnia Omeprazole (Omeprazole 40 Mg Capsule.) 40 mg PO DAILY@0630 [facility] Ondansetron HCl (Ondansetron Hcl 4 Mg/2 Ml Vial) 4 mg IVPUSH Q8H PRN PRN Reason: Nausea and Vomiting Pharmacy Consult (Consult Rx Perform Med Rec) 1 each MISCELLANE ONCE PRN PRN Reason: Consult order Sodium Chloride (0.9 % Sodium Chloride Flush 3 Ml Syringe) 3 ml IVFLUSH QSHIFT [facility] Last Admin: 07/16/22 07:57 Dose: 3 ml Home Medications Medication Instructions Recorded Confirmed Last Taken Type amlodipine 10 mg tablet 10 mg PO DAILY 07/15/22 07/15/22 Unknown History gabapentin 100 mg capsule 100 mg PO BID PRN Pain 07/15/22 07/15/22 Unknown History lisinopril 20 mg tablet 40 mg PO DAILY 07/15/22 07/15/22 Unknown History lorazepam 1 mg tablet 1 mg PO BEDTIME PRN Insomnia 07/15/22 07/15/22 Unknown History pantoprazole 40 mg tablet,delayed 40 mg PO DAILY 07/15/22 07/15/22 Unknown History release Physical Exam Vital Signs: Vital Signs: Last Vital Signs Temp 98.0 F 07/16/22 11:02 Pulse 78 07/16/22 11:02 Resp 20 07/16/22 11:02 BP 148/74 H 07/16/22 11:02 Pulse Ox 96 07/16/22 11:02 O2 Del Method Room Air 07/16/22 11:02 BMI result Body Mass Index 23.4 Const: General: cooperative, healthy appearing and comfortable Orientation/consciousness: oriented to person, oriented to place and oriented to time HEENT: Head: Yes normal to inspection Neck: Neck: Yes normal visual inspection Carotids: no bruits Chest: Chest palpation & inspection: normal inspection of the chest Resp: Effort & Inspection: normal respiratory effort and able to speak in complete sentences Auscultation: clear to auscultation bilaterally, no crackles, no rales, no rhonchi and no wheezes Cardio: Rate: regular rate Rhythm: regular rhythm Heart sounds: S1 normal heart sound present and S2 normal heart sound present Bruits: no carotid bruits Peripheral pulses: Peripheral pulses 2+ throughout GI: Inspection: Yes normal to inspection Skin: Wounds: no wounds Hair: normal Neuro: Other: Normal non focal neuro exam. General: oriented to person, oriented to place and oriented to time Cranial nerves: Yes CN's II-XII intact bilaterally and Yes Normal hearing present Cognition (Neuro): normal cognition Speech: Abnormal speech present Motor exam (neuro): 5/5 motor strength present throughout Extrem: Other: venous exam: No significant superficial varicosities or spider telangiectasias, minimal edema General: No clubbing, No cyanosis and No edema Psych: Appearance: grossly normal Mental Status: mental status grossly normal Speech and movement: Normal speech and movement present Results Labs 07/16/22 06:18 07/16/22 06:18 Labs: Short CBC 07/15/22 07/16/22 Range/Units 18:50 06:18 WBC 7.0 5.3 (4.8-10.8) X10*3/uL Hgb 15.6 14.1 (12.0-16.0) g/dl Hct 45.4 41.4 (37.0-47.0) % Plt Count 250 223 (160-400) X10*3/uL BMP 07/15/22 07/16/22 18:50 06:18 Sodium 133 L 138 Potassium 4.5 4.2 Chloride 100 104 Carbon Dioxide 21 L 24 BUN 17 H 13 Creatinine 0.77 0.67 Calcium 9.8 9.2 D Cardiac Enzymes 07/15/22 Range/Units 18:50 Total Creatine Kinase 118 (26-140) U/L Urine 07/15/22 Range/Units 20:13 Urine Color Yellow Urine Appearance Clear Urine pH 6.0 (5.0-9.0) Ur Specific [place] 1.020 (1.005-1.025) Urine Protein Negative (Neg-Trace) mg/dL Urine Glucose (UA) Negative (Negative) mg/dL Assessment and Plan (1) Transient cerebral ischemia: Status: Acute Right hemisphere TIA versus migraine phenomena. CT scan and CTA cannot reveal any significant carotid disease. 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 Patient cannot have an MRI. Echocardiogram is being done. Cholesterol is a elevated. Recommendation: Aspirin 81 mg a day. Atorvastatin 40 mg a day. Patient can be discharged after the echocardiogram. Will followup with her PCP in [place] for better blood pressure control. Plan In short it appears that there is question of a TIA. The carotid arteries are clean and the vertebral artery does not appear to be the source of this. Would recommend neurologic workup. This was discussed in detail with the patient. She can follow up with us on an as-needed basis. Thank you for allowing us to participate in her care. If there are any questions or concerns please do not hesitate to contact us. Time Spent With Patient Time: Total time managing care of this patient today ____ minutes. Procedures Date of Service Date of Service: 07/16/22
[2022-07-16] MEDS: Aspirin Enteric Coated 81 MG TABLET.DR PO (14:58)
[2022-07-16 15:17] VITALS: BP 148/62; PULSE 84; RESP 14; TEMP 36.5; O2SAT 96
--- NOTE | 2022-07-16 15:41 | PM.DS ---
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 Patient states that around 17:00 she had sudden onset of left upper extremity tingling and weakness.? Patient also had left lower extremity weakness and some difficulty ambulating.? No history of stroke in the past.? 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 States she may have had difficulty with word-finding too.? Patient denies fever, chills, chest discomfort, palpitations, shortness of breath, abdominal pain, changes in urinary or bowel habits.? No loss of consciousness, jerking movement of extremities, facial droop. hospital course: 77-year-old female with pertinent history of essential hypertension, generalized anxiety disorder, gastroesophageal reflux disease, migraine who presents to the emergency department for evaluation of left upper extremity and left lower extremity weakness. 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, LDL 140, total cholesterol 252 with a high HDL of 97, patient evaluated by vascular surgery, patient carotid arteries were clean and it did not seem that right vertebral artery appear to be the source of patient's symptoms Neuro agreed vascular evaluation, Neurology recommend aspirin and Lipitor , echocardiogram has been obtained, recommended to obtain report of echocardiogram from medical records, evaluated by speech therapy and physical therapy and has been discharged from their services therefore she is being discharged home with recommendation to have close outpatient follow-up with PCP for better blood pressure and cholesterol control. #.? Essential hypertension:? Continue lisinopril 40 mg a lower dose of amlodipine to 5 mg and follow blood pressure closely. #.? Generalized anxiety disorder: continue lorazepam at night. #.? Gastroesophageal reflux disease: On Protonix Time Spent with Patient Time attestation: Total time managing care of this patient today ____ minutes. Discharge coordination time: Greater than 30 minutes Quality: Safe Use of Opioids Does Pt have an Active Cancer Diagnosis on the Problem List?: No Quality: Stroke Does the patient have a stroke diagnosis?: No Physical Exam Vital Signs: Vital Signs: Last Vital Signs Temp 97.7 F 07/16/22 15:17 Pulse 84 07/16/22 15:17 Resp 14 07/16/22 15:17 BP 148/62 H 07/16/22 15:17 Pulse Ox 96 07/16/22 15:17 O2 Del Method Room Air 07/16/22 15:17 BMI result Body Mass Index 23.4 Const: Other: General awake alert x3, no acute distress. Neck is supple no JVD. CVS regular rate rhythm, Respiratory lungs clear to auscultation, no respiratory distress, no wheeze, no rhonchi. Gastrointestinal abdomen soft, nontender, bowel sounds audible,. Extremities mild edema Neuro nonfocal Skin no rash psych appropriate affect DS: Data Data Completed and Pending Labs on day of discharge: Laboratory Results - last 24 hr 07/15/22 07/15/22 07/15/22 18:05 18:05 18:50 WBC 7.0 RBC 5.11 Hgb 15.6 Hct 45.4 MCV 88.8 MCH 30.5 MCHC 34.4 RDW 13.5 Plt Count 250 MPV 9.1 L Immature Gran % (Auto) 0.3 Neut % (Auto) 77.6 H Lymph % (Auto) 14.9 L Shelby % (Auto) 6.4 Eos % (Auto) 0.4 Baso % (Auto) 0.4 Lymph # (Auto) 1.0 L [place] # (Auto) 0.5 Eos # (Auto) 0.0 Baso # (Auto) 0.0 Abs Immat Gran (auto) 0.02 Absolute Neuts (auto) 5.4 Absolute Nucleated RBC 0.000 Nucleated RBC % (auto) 0.0 PT Whole Blood PT 11.2 INR Whole Blood INR 0.9 Sodium Potassium Chloride Carbon Dioxide Anion Gap BUN Creatinine Estim Creat Clear Calc Estimated GFR POC Glucose 135 H Random Glucose Estimat Average Glucose Hemoglobin A1c % Calcium Phosphorus Magnesium Total Creatine Kinase Troponin I High Sens Triglycerides Cholesterol LDL Cholesterol, Calc HDL Cholesterol Urine Color Urine Appearance Urine pH Ur Specific [place] Urine Protein Urine Glucose (UA) Urine Ketones Urine Blood Urine Nitrite Ur Leukocyte Esterase Urine RBC Urine WBC Ur Squamous Epith Cells Urine Bacteria Hyaline Casts COVID-19 ([facility]) COVID-19 Clin Com 07/15/22 07/15/22 07/15/22 18:50 18:50 18:50 WBC RBC Hgb Hct MCV MCH MCHC RDW Plt Count MPV Immature Gran % (Auto) Neut % (Auto) Lymph % (Auto) [place] % (Auto) Eos % (Auto) Baso % (Auto) Lymph # (Auto) [place] # (Auto) Eos # (Auto) Baso # (Auto) Abs Immat Gran (auto) Absolute Neuts (auto) Absolute Nucleated RBC Nucleated RBC % (auto) PT 10.0 Whole Blood PT INR 0.9 Whole Blood INR Sodium 133 L Potassium 4.5 Chloride 100 Carbon Dioxide 21 L Anion Gap 17 BUN 17 H Creatinine 0.77 Estim Creat Clear Calc 43.9 Estimated GFR > 60 POC Glucose Random Glucose 106 Estimat Average Glucose Hemoglobin A1c % Calcium 9.8 Phosphorus 3.5 Magnesium 1.9 Total Creatine Kinase 118 Troponin I High Sens 7.4 Triglycerides Cholesterol LDL Cholesterol, Calc HDL Cholesterol Urine Color Urine Appearance Urine pH Ur Specific [place] Urine Protein Urine Glucose (UA) Urine Ketones Urine Blood Urine Nitrite Ur Leukocyte Esterase Urine RBC Urine WBC Ur Squamous Epith Cells Urine Bacteria Hyaline Casts COVID-19 ([facility]) COVID-19 [employer] (acquired by [employer]) Com 07/15/22 07/15/22 07/15/22 18:57 19:53 19:53 WBC RBC Hgb Hct MCV MCH MCHC RDW Plt Count MPV Immature Gran % (Auto) Neut % (Auto) Lymph % (Auto) [place] % (Auto) Eos % (Auto) Baso % (Auto) Lymph # (Auto) [place] # (Auto) Eos # (Auto) Baso # (Auto) Abs Immat Gran (auto) Absolute Neuts (auto) Absolute Nucleated RBC Nucleated RBC % (auto) PT Whole Blood PT INR Whole Blood INR Sodium Potassium Chloride Carbon Dioxide Anion Gap BUN Creatinine Estim Creat Clear Calc Estimated GFR POC Glucose Random Glucose Estimat Average Glucose 100 Hemoglobin A1c % 5.1 Calcium Phosphorus Magnesium Total Creatine Kinase Troponin I High Sens Triglycerides 75 Cholesterol 252 LDL Cholesterol, Calc 140 HDL Cholesterol 97 Urine Color Urine Appearance Urine pH Ur Specific [place] Urine Protein Urine Glucose (UA) Urine Ketones Urine Blood Urine Nitrite Ur Leukocyte Esterase Urine RBC Urine WBC Ur Squamous Epith Cells Urine Bacteria Hyaline Casts COVID-19 ([facility]) Negative COVID-19 Clin Com See Note 07/15/22 07/16/22 07/16/22 20:13 06:18 06:18 WBC 5.3 RBC 4.63 Hgb 14.1 Hct 41.4 MCV 89.4 MCH 30.5 MCHC 34.1 RDW 13.5 Plt Count 223 MPV 9.4 Immature Gran % (Auto) 0.2 Neut % (Auto) 57.4 Lymph % (Auto) 29.6 Shelby % (Auto) 11.1 H Eos % (Auto) 1.1 Baso % (Auto) 0.6 Lymph # (Auto) 1.6 [place] # (Auto) 0.6 Eos # (Auto) 0.1 Baso # (Auto) 0.0 Abs Immat Gran (auto) 0.01 Absolute Neuts (auto) 3.0 Absolute Nucleated RBC 0.000 Nucleated RBC % (auto) 0.0 PT Whole Blood PT INR Whole Blood INR Sodium 138 Potassium 4.2 Chloride 104 Carbon Dioxide 24 Anion Gap 14 BUN 13 Creatinine 0.67 Estim Creat Clear Calc 50.5 Estimated GFR > 60 POC Glucose Random Glucose 82 Estimat Average Glucose Hemoglobin A1c % Calcium 9.2 D Phosphorus Magnesium Total Creatine Kinase Troponin I High Sens Triglycerides Cholesterol LDL Cholesterol, Calc HDL Cholesterol Urine Color Yellow Urine Appearance Clear Urine pH 6.0 Ur Specific [place] 1.020 Urine Protein Negative Urine Glucose (UA) Negative Urine Ketones Negative Urine Blood Negative Urine Nitrite Negative Ur Leukocyte Esterase Trace H Urine RBC 0-2 Urine WBC 0-5 Ur Squamous Epith Cells 0-2 Urine Bacteria None Seen Hyaline Casts 0-2 COVID-19 ([facility]) COVID-19 Clin Com Discharge Plan Discharge Anticipated Discharge Date/Time: 07/16/22 15:16 Patient Disposition: Home, Self-Care Discharge Diagnosis: transient neurological deficit Referrals: Physician,Unknown J [Primary Care Provider] - 1 Week Discharge Medications: New aspirin 81 mg Tablet,Delayed Release (Dr/Ec) 81 mg PO DAILY Qty: 30 0RF atorvastatin [Lipitor] 20 mg tablet 20 mg PO DAILY Qty: 30 0RF Continued lisinopril 20 mg tablet 40 mg PO DAILY amlodipine 10 mg tablet 10 mg PO DAILY pantoprazole 40 mg tablet,delayed release (DR/EC) 40 mg PO DAILY gabapentin 100 mg capsule 100 mg PO BID PRN (Reason: Pain) lorazepam 1 mg tablet 1 mg PO BEDTIME PRN (Reason: Insomnia) Discharge Orders: Discharge Order (Routine); Ordered 07/16/22 Ordered By: Sheeba Kenny Diet: Low fat, low cholesterol Activity on Discharge: As tolerated Stand Alone Forms: Patient Portal Discharge page Care Plan Goals: right hemispheric TIA versus migraine take amlodipine 5 mg by mouth daily, take aspirin 81 mg daily and Lipitor 20 mg by mouth daily echocardiogram report pending Health Concerns: hypertension follow blood pressure closely and adjust medication Plan of Treatment: outpatient follow-up with primary care physician in [place] Assessment: as above Discharge Date/Time: 07/16/22 15:55
== END 2022-07-16 15:55 | disposition home or self-care (01) | DRG 69 ==
LOC: HO.ED 19:30 → HO.EDOVER 19:33 → HO.IMC 19:47
PROVIDERS: Admitting Provider Student in an Organized Health Care Education/Training Program; Emergency Provider Emergency Medicine Emergency Medical Services; Visit Provider Hospitalist
DX: G45.9 Transient cerebral ischemic attack, unspecified (principal); G81.94 Hemiplegia, unspecified affecting left nondominant side; G43.909 Migraine, unspecified, not intractable, without status migrainosus; I66.21 Occlusion and stenosis of right posterior cerebral artery; K21.9 Gastro-esophageal reflux disease without esophagitis; F41.1 Generalized anxiety disorder; I10 Essential (primary) hypertension; E78.00 Pure hypercholesterolemia, unspecified; Z20.822 Contact with and (suspected) exposure to COVID-19; Z79.82 Long term (current) use of aspirin; Z79.899 Other long term (current) drug therapy
CPT/HCPCS: 36415; 70450; 70496; 70498; 80048; 80061; 81001; 82550; 82947; 83036; 83735; 84100; 84484; 85025; 85610; 87635; 92610; 93005; 93306; 96372; 96374; 96375; 97161; 99285; J1200; J1650; J2765; Q9957; Q9967